=== PATIENT | male | born 1990 | race Caucasian/White ===

== ENCOUNTER 2017-02-09 07:42 | Emergency (ER) | payer OTHER ==
[~2017-02-09] VITALS: Ht 170.2 cm; Wt 92.0 kg
[~2017-02-09 07:42] MED LIST: ACET500C5 PO; AMO500 PO; AMOX1TAB10 PO; CYCL-319 PO; ERYTOPOI RIGHT EYE; FAMO-18 PO; HYDR-3498 PO; HYDR-762 PO; IBUP-1542 PO; IBUP800T25 PO; ONDA4TAB35 PO; ONDA4TAB8 PO; PANT40SU2 PO
[2017-02-09 07:48] VITALS: Ht 170.2 cm; Wt 92.0 kg
--- NOTE | 2017-02-09 08:37 | RADRPT ---
PROCEDURE: XR Chest. CLINICAL INDICATION: Cough TECHNIQUE: Chest AP portable. COMPARISON: 05/08/2014 FINDINGS: The mediastinal structures are unremarkable. The heart is normal in size and configuration. The pu lmonary vascularity is normal. The lung vargas are unremarkable. No consolidation is identified. The pleural spaces are unremarkable. The axial skeleton is unremarkable. IMPRESSION: No active intrathoracic disease. RPTAT: HGDB .Dominic Aguilar MD, MD Date Time Electronically viewed and signed by .Dominic Aguilar MD, on 02/09/2017 08:37 .B/
[2017-02-09] MEDS ORDERED: AZIT250T94 PO (08:40)
[2017-02-09] MEDS ORDERED: ALBU8.5H3 INH (08:40)
[2017-02-09] MEDS ORDERED: CETI10CA PO (08:40)
--- NOTE | 2017-02-09 08:43 | ERD ---
ER Documentation Chief Complaint Date/Time DATE: 02/09/17 TIME: 0800 Chief Complaint Complains of a cough x 2 months HPI 27-year-old male presents the emergency department complaining of a cough. Patient states that over the last 2 months she has had a nonproductive cough. He reports no difficulty breathing. He reports no fevers, chills, weight loss, night sweats, hemoptysis. He reports upper respiratory congestion. ROS All systems reviewed and are negative except as per history of present illness. Medications Home Meds Active Scripts Albuterol Sulfate* (Proair HFA*) 8.5 Gm Hfa.aer.ad, 2 PUFF INH Q4H Y for WHEEZING AND SOB, #1 INHALER Prov:JEF RICARDO 02/09/17 Cetirizine Hcl* (Zyrtec*) 10 Mg Capsule, 10 MG PO DAILY, #10 TAB.CHEW Prov:JEF RICARDO 02/09/17 Azithromycin* (Zithromax*) 250 Mg Tablet, 250 MG PO .SHOLA DIRECTED, #6 TAB TAKE 500 MG (2 TABS) THE FIRST DAY THEN 250 MG (1 TAB) DAYS 2-5 Prov:JEF RICARDO 02/09/17 Amoxicillin/Potassium Clav (Amox-Clav 875-125 mg Tablet) 875-125 mg Tab, 1 TAB PO BID for 7 Days, #14 TAB Prov:CHANO RUSSO PA-C 08/24/16 Ibuprofen* (Motrin*) 600 Mg Tab, 600 MG PO Q6, #30 TAB Prov:CHRIST BARNES PA-C 08/15/16 Acetaminophen* (Tylophen*) 500 Mg Capsule, 2 CAP PO Q8H Y for PAIN AND OR ELEVATED TEMP, #30 CAP Prov:CHRIST BARNES PA-C 08/15/16 Erythromycin* (Erythromycin* Ophthalmic) 1 Applic Oint, 1 APPLIC RIGHT EYE QID, #1 TUB Prov:RICARDO VARELA PA-C 05/05/16 Hydrocodone Bit-Acetaminophen* ([place]*) 10-325 Mg Tablet, 1 TAB PO Q6 Y for PAIN , #7 TAB Prov:CHRIST BARNES PA-C 04/14/16 Acetaminophen* (Tylophen*) 500 Mg Capsule, 1 CAP PO Q6H Y for PAIN AND OR ELEVATED TEMP, #30 CAP Prov:CHRIST BARNES PA-C 04/14/16 Famotidine* (Pepcid*) 20 Mg Tablet, 40 MG PO BID for 14 Days, TAB Prov:CHRIST BARNES PA-C 04/14/16 Ondansetron Hcl* (Zofran*) 4 Mg Tablet, 4 MG PO Q6H for NAUSEA AND/OR VOMITING, #20 TAB Prov:CHRIST BARNES PA-C 04/14/16 Amoxicillin* (Amoxicillin*) 500 Mg Cap, 500 MG PO TID for 10 Days, CAP Prov:SHWETHA BERMUDEZ PA-C 04/11/16 Ibuprofen* (Motrin*) 800 Mg Tab, 800 MG PO Q6, #30 TAB Prov:SHWETHA BERMUDEZ PA-C 04/11/16 Cyclobenzaprine Hcl* (Cyclobenzaprine Hcl*) 10 Mg Tablet, 10 MG PO TID, #15 TAB Prov:SHWETHA BERMUDEZ PA-C 04/11/16 Pantoprazole (Protonix) 40 Mg/Blist Pack Suspdr.pkt, 40 MG PO DAILY, #14 PACKET Prov:NHI PERALTA MD 12/08/15 Ondansetron Hcl* (Zofran* ODT) 4 mg -ODT Tab.disper, 4 MG PO Q6H Y for NAUSEA, # 10 TAB Prov:NHI PERALTA MD 12/08/15 Hydrocodone Bit-Acetaminophen* ([place]*) 5-325 Mg Tab, 1 TAB PO Q6 Y for PAIN, # 10 TAB Prov:NHI PERALTA MD 12/08/15 Allergies Allergies: Coded Allergies: No Known Drug Allergies (Verified Allergy, Unknown, 04/11/16) PMhx/Soc History of Surgery: No Anesthesia Reaction: No Hx Neurological Disorder: No Hx Respiratory Disorders: No Hx Cardiac Disorders: No Hx Psychiatric Problems: No Hx Miscellaneous Medical Probl: Yes (GALLSTONE,GASTRITIS) Hx Alcohol Use: Yes (socially) Hx Substance Use: Yes (marijuana) Hx Tobacco Use: Yes Smoking Status: Current some day smoker FmHx Noncontributory for chief complaint Physical Exam Vitals Vital Signs Date Time Temp Pulse Resp B/P Pulse Ox O2 Delivery O2 Flow Rate FiO2 02/09/17 07:48 98.0 61 20 118/75 97 Physical Exam GENERAL: The patient is well developed and appropriate for usual state of health in no apparent distress HEENT: Pupils equal, round, and reactive to light. EOMI. There is no scleral icterus. NECK: C-spine is soft and supple, there is no meningismus. There is no cervical lymphadenopathy. LUNGS: Clear to auscultation bilaterally. There are no rales, wheezes or rhonchi. HEART: Regular rate and rhythm, no murmurs, clicks, rubs or gallops. Procedures/MDM Patient was taken to a room, seen and examined. Imaging: Chest x-ray reviewed with radiology Medical decision making: Otherwise healthy 27-year-old presents with a chronic cough. Chest x-ray is ruled out significant pneumonia. Patient has no evidence of bronchospasm. Patient likely has a upper respiratory cause of his chronic cough and I will be treating him supportively. He is otherwise clinically well with no signs of respiratory distress and appropriate for outpatient care. Departure Diagnosis: Primary Impression: Cough Condition: Stable Patient Instructions: Cough, Chronic, Uncertain Cause, (Adult) Additional Instructions: See your doctor for follow-up as discussed. Take a copy of your test results, if appropriate, to this follow-up visit. See your doctor or return here if your symptoms do not improve as expected. At any time, please return to the emergency department for any change or worsening in her symptoms. JEF RICARDO February 09, 2017 08:42
== END 2017-02-09 08:47 | disposition home or self-care (01) ==
LOC: FTE 07:42
DX: R05 Cough (principal); F17.210 Nicotine dependence, cigarettes, uncomplicated
CPT/HCPCS: 71010; Z7502

== ENCOUNTER 2017-02-23 08:43 | Emergency (ER) | payer OTHER ==
[~2017-02-23] VITALS: Ht 172.7 cm; Wt 100.0 kg
[~2017-02-23 08:43] MED LIST changes: +ALBU8.5H3 INH; +AZIT250T94 PO; +CETI10CA PO
[2017-02-23 08:45] VITALS: Ht 172.7 cm; Wt 100.0 kg
[2017-02-23] MEDS ORDERED: KETOROLAC 30 MG INJ IM STA (08:58)
[2017-02-23] MEDS ORDERED: CYCL5TAB PO (09:01)
[2017-02-23] MEDS ORDERED: IBUP-1542 PO (09:01)
--- NOTE | 2017-02-23 09:16 | ERD ---
ER Documentation Chief Complaint Date/Time DATE: 02/23/17 TIME: 09:11 Chief Complaint pt bib self with c/o back pain starting last thursday HPI 27-year-old male self-referred to the emergency room complains of mid back pain that started 7-8 days ago. Patient states that he was at work, although he normally lifts heavy at work, he was lifting a light object and turned and twisted and now he has diffuse pain in the thoracic region that goes across his back. Pain is worse with movement, achy, worse with flexion, better in sitting position. He took ibuprofen 800 mg he states that that seemed to help. He denies saddle anesthesia, loss of bowel bladder function. ROS All systems reviewed and are negative except as per history of present illness. Medications Home Meds Active Scripts Ibuprofen* (Motrin*) 600 Mg Tab, 600 MG PO Q6, #30 TAB Prov:CHANO RUSSO PA-C 02/23/17 Cyclobenzaprine Hcl* (Cyclobenzaprine Hcl*) 5 Mg Tablet, 5 MG PO Q8H Y for PAIN , #15 TAB Prov:CHANO RUSSO PA-C 02/23/17 Albuterol Sulfate* (Proair HFA*) 8.5 Gm Hfa.aer.ad, 2 PUFF INH Q4H Y for WHEEZING AND SOB, #1 INHALER Prov:JEF RICARDO 02/09/17 Cetirizine Hcl* (Zyrtec*) 10 Mg Capsule, 10 MG PO DAILY, #10 TAB.CHEW Prov:JEF RICARDO 02/09/17 Azithromycin* (Zithromax*) 250 Mg Tablet, 250 MG PO .QuintenPACK DIRECTED, #6 TAB TAKE 500 MG (2 TABS) THE FIRST DAY THEN 250 MG (1 TAB) DAYS 2-5 Prov:JEF RICARDO 02/09/17 Amoxicillin/Potassium Clav (Amox-Clav 875-125 mg Tablet) 875-125 mg Tab, 1 TAB PO BID for 7 Days, #14 TAB Prov:CHANO RUSSO PA-C 08/24/16 Ibuprofen* (Motrin*) 600 Mg Tab, 600 MG PO Q6, #30 TAB Prov:CHRIST BARNES PA-C 08/15/16 Acetaminophen* (Tylophen*) 500 Mg Capsule, 2 CAP PO Q8H Y for PAIN AND OR ELEVATED TEMP, #30 CAP Prov:CHRIST BARNESC 08/15/16 Erythromycin* (Erythromycin* Ophthalmic) 1 Applic Oint, 1 APPLIC RIGHT EYE QID, #1 TUB Prov:RICARDO VARELA PA-C 05/05/16 Hydrocodone Bit-Acetaminophen* ([place]*) 10-325 Mg Tablet, 1 TAB PO Q6 Y for PAIN , #7 TAB Prov:CHRIST BARNESC 04/14/16 Acetaminophen* (Tylophen*) 500 Mg Capsule, 1 CAP PO Q6H Y for PAIN AND OR ELEVATED TEMP, #30 CAP Prov:CHRIST BARNES PA-C 04/14/16 Famotidine* (Pepcid*) 20 Mg Tablet, 40 MG PO BID for 14 Days, TAB Prov:CHIRST BARNES PA-C 04/14/16 Ondansetron Hcl* (Zofran*) 4 Mg Tablet, 4 MG PO Q6H for NAUSEA AND/OR VOMITING, #20 TAB Prov:CHRIST BARNES PA-C 04/14/16 Amoxicillin* (Amoxicillin*) 500 Mg Cap, 500 MG PO TID for 10 Days, CAP Prov:SHWETHA BERMUDEZ PA-C 04/11/16 Ibuprofen* (Motrin*) 800 Mg Tab, 800 MG PO Q6, #30 TAB Prov:SHWETHA BERMUDEZ PA-C 04/11/16 Cyclobenzaprine Hcl* (Cyclobenzaprine Hcl*) 10 Mg Tablet, 10 MG PO TID, #15 TAB Prov:SHWETHA BERMUDEZ PA-C 04/11/16 Pantoprazole (Protonix) 40 Mg/Blist Pack Suspdr.pkt, 40 MG PO DAILY, #14 PACKET Prov:NHI PERALTA MD 12/08/15 Ondansetron Hcl* (Zofran* ODT) 4 mg -ODT Tab.disper, 4 MG PO Q6H Y for NAUSEA, # 10 TAB Prov:NHI PERALTA MD 12/08/15 Hydrocodone Bit-Acetaminophen* ([place]*) 5-325 Mg Tab, 1 TAB PO Q6 Y for PAIN, # 10 TAB Prov:NHI PERALTA MD 3/26/16 Allergies Allergies: Coded Allergies: No Known Drug Allergies (Verified Allergy, Unknown, 04/11/16) PMhx/Soc Medical and Surgical Hx: pt denies Medical Hx, pt denies Surgical Hx History of Surgery: No Anesthesia Reaction: No Hx Neurological Disorder: No Hx Respiratory Disorders: No Hx Cardiac Disorders: No Hx Psychiatric Problems: No Hx Miscellaneous Medical Probl: Yes (GALLSTONE,GASTRITIS) Hx Alcohol Use: Yes (socially) Hx Substance Use: Yes (marijuana) Hx Tobacco Use: Yes Smoking Status: Current every day smoker Physical Exam Vitals Vital Signs Date Time Temp Pulse Resp B/P Pulse Ox O2 Delivery O2 Flow Rate FiO2 02/23/17 08:45 64 16 112/53 97 Physical Exam General: Well-developed, well-nourished. The patient appears in no acute distress. HEENT: Head is normocephalic, atraumatic. No scleral icterus. Neck: Supple. Nontender. Lungs: Clear to auscultation. Normal air movement. Heart: Regular rate and rhythm. S1 and S2 are normal. No murmurs, gallops, or rubs. Abdomen: Soft, nontender, nondistended. Bowel sounds are normoactive. Back: No midline tenderness, diffuse pain in the midthoracic with palpation laterally. No rash. Strength to lower extremities 5 out of 5 bilaterally. Extremities: No clubbing or cyanosis. Normal pulses. Moving extremities x 4. No weakness. Neurologic: Alert and oriented 3. No focal deficits. Skin: Normal turgor. No rash or lesions. Results 24 hrs Current Medications Medications (Trade) Dose Ordered Sig/Megan Route PRN Reason Start Time Stop Time Status Last Admin Dose Admin Ketorolac Tromethamine (Toradol) 30 mg ONCE STAT IM 02/23/17 08:58 02/23/17 08:59 DC Procedures/MDM 27-year-old male comes in with a mid thoracic strain. Patient's back pain is from twisting, there is no history of trauma. Strength and gait is intact. Patient's pain is reproducible palpation, this appears to be musculoskeletal origin of back pain. There are no signs of acute coronary syndrome, dissection , pulmonary embolus, pneumonia, cauda equina, compression syndrome. Departure Diagnosis: Primary Impression: Back pain Condition: Good Patient Instructions: Thoracic Strain Additional Instructions: Call your primary care doctor TOMORROW for an appointment during the next 1-2 days.See the doctor sooner or return here if your condition worsens before your appointment time. CHANO RUSSO PA-C Feb 23, 2017 09:16
== END 2017-02-23 09:20 | disposition home or self-care (01) ==
LOC: FTE 08:43
DX: M54.6 Pain in thoracic spine (principal); F17.210 Nicotine dependence, cigarettes, uncomplicated
CPT/HCPCS: 96372; J1885

== ENCOUNTER 2017-04-13 01:55 | Emergency (ER) | payer OTHER ==
[~2017-04-13] VITALS: Ht 172.7 cm; Wt 96.0 kg
[~2017-04-13 01:55] MED LIST changes: +CYCL5TAB PO; -FAMO-18 PO; +FAMO-96 PO
[2017-04-13 02:07] VITALS: Ht 172.7 cm; Wt 96.0 kg
--- NOTE | 2017-04-13 03:34 | RADRPT ---
PROCEDURE: XR Chest. CLINICAL INDICATION: Cough. TECHNIQUE: AP Portable chest. COMPARISON: 02/09/2017 FINDINGS: The cardiomediastinal silhouette is normal. The lungs are clear. The osseous structures are unrema rkable. IMPRESSION: No acute findings. RPTAT: HIKT .Jae Wood MD, MD Date Time Electronically viewed and signed by .aJe Wood MD, on 04/13/2017 03:33 .T/
--- NOTE | 2017-04-13 03:47 | ERD ---
ER Documentation Chief Complaint Date/Time DATE: 04/13/17 TIME: 03:45 Chief Complaint cough, SOB, sore throat HPI 27-year-old male presents to emergency department for complaint of cough shortness breath wheezing sore throat started 2 days ago. Patient has been dry cough with wheezing. Patient is complaining of sore throat from coughing burning pain for 6/10 scale, is worse with swallowing. Patient did not take any medications to help with symptoms. Patient denies any fever or chills. Patient denies any chest or palpitations. Patient denies any dyspnea on exertion or dyspnea on lying down. ROS All systems reviewed and are negative except as per history of present illness. Medications Home Meds Active Scripts Ibuprofen* (Motrin*) 600 Mg Tab, 600 MG PO Q6, #30 TAB Prov:CHANO RUSSO PA-C 02/23/17 Cyclobenzaprine Hcl* (Cyclobenzaprine Hcl*) 5 Mg Tablet, 5 MG PO Q8H Y for PAIN , #15 TAB Prov:CHANO RUSSO PA-C 02/23/17 Albuterol Sulfate* (Proair HFA*) 8.5 Gm Hfa.aer.ad, 2 PUFF INH Q4H Y for WHEEZING AND SOB, #1 INHALER Prov:JEF RICARDO 02/09/17 Cetirizine Hcl* (Zyrtec*) 10 Mg Capsule, 10 MG PO DAILY, #10 TAB.CHEW Prov:JEF RICARDO 02/09/17 Azithromycin* (Zithromax*) 250 Mg Tablet, 250 MG PO .ZPACK DIRECTED, #6 TAB TAKE 500 MG (2 TABS) THE FIRST DAY THEN 250 MG (1 TAB) DAYS 2-5 Prov:JEF RICARDO 02/09/17 Amoxicillin/Potassium Clav (Amox-Clav 875-125 mg Tablet) 875-125 mg Tab, 1 TAB PO BID for 7 Days, #14 TAB Prov:CHANO RUSSO PA-C 08/24/16 Ibuprofen* (Motrin*) 600 Mg Tab, 600 MG PO Q6, #30 TAB Prov:CHRIST BARNES PA-C 08/15/16 Acetaminophen* (Tylophen*) 500 Mg Capsule, 2 CAP PO Q8H Y for PAIN AND OR ELEVATED TEMP, #30 CAP Prov:CHRIST BARNES PA-C 08/15/16 Erythromycin* (Erythromycin* Ophthalmic) 1 Applic Oint, 1 APPLIC RIGHT EYE QID, #1 TUB Prov:RICARDO VARELA PA-C 05/05/16 Hydrocodone Bit-Acetaminophen* ([place]*) 10-325 Mg Tablet, 1 TAB PO Q6 Y for PAIN , #7 TAB Prov:CHRIST BARNES PA-C 04/14/16 Acetaminophen* (Tylophen*) 500 Mg Capsule, 1 CAP PO Q6H Y for PAIN AND OR ELEVATED TEMP, #30 CAP Prov:CHRIST BARNES PA-C 04/14/16 Famotidine* (Pepcid*) 20 Mg Tablet, 40 MG PO BID for 14 Days, TAB Prov:CHRIST BARNES PA-C 04/14/16 Ondansetron Hcl* (Zofran*) 4 Mg Tablet, 4 MG PO Q6H for NAUSEA AND/OR VOMITING, #20 TAB Prov:CHRIST BARNES PA-C 04/14/16 Amoxicillin* (Amoxicillin*) 500 Mg Cap, 500 MG PO TID for 10 Days, CAP Prov:SHWETHA BERMUDEZ PA-C 04/11/16 Ibuprofen* (Motrin*) 800 Mg Tab, 800 MG PO Q6, #30 TAB Prov:SHWETHA BERMUDEZ PA-C 04/11/16 Cyclobenzaprine Hcl* (Cyclobenzaprine Hcl*) 10 Mg Tablet, 10 MG PO TID, #15 TAB Prov:SHWETHA BERMUDEZ PA-C 04/11/16 Pantoprazole (Protonix) 40 Mg/Blist Pack Suspdr.pkt, 40 MG PO DAILY, #14 PACKET Prov:NHI PERALTA MD 12/08/15 Ondansetron Hcl* (Zofran* ODT) 4 mg -ODT Tab.disper, 4 MG PO Q6H Y for NAUSEA, # 10 TAB Prov:NHI PERALTA MD 12/08/15 Hydrocodone Bit-Acetaminophen* ([place]*) 5-325 Mg Tab, 1 TAB PO Q6 Y for PAIN, # 10 TAB Prov:NHI PERALTA MD 12/08/15 Allergies Allergies: Coded Allergies: No Known Drug Allergies (Verified Allergy, Unknown, 04/11/16) PMhx/Soc History of Surgery: No Anesthesia Reaction: No Hx Neurological Disorder: No Hx Respiratory Disorders: No Hx Cardiac Disorders: No Hx Psychiatric Problems: No Hx Miscellaneous Medical Probl: Yes (GALLSTONE,GASTRITIS) Hx Alcohol Use: Yes (socially) Hx Substance Use: Yes (marijuana) Hx Tobacco Use: Yes Smoking Status: Current every day smoker FmHx Family History: No coronary disease, No diabetes, No other Physical Exam Vitals Vital Signs Date Time Temp Pulse Resp B/P Pulse Ox O2 Delivery O2 Flow Rate FiO2 04/13/17 02:07 98.6 70 18 117/61 96 Physical Exam GENERAL: The patient is well developed and appropriate for usual state of health, in no apparent distress. CHEST: Clear to auscultation bilaterally. There are no rales, wheezes or rhonchi. HEART: Regular rate and rhythm. No murmurs, clicks, rubs or gallops. No S3 or S4. ABDOMEN: Soft, nontender and nondistended. Good bowel sounds. No rebound or guarding. No gross peritonitis. No gross organomegaly or masses. No Mckay sign or McBurney point tenderness. BACK: No midline or flank tenderness. EXTREMITIES: Equal pulses bilaterally. There is no peripheral clubbing, cyanosis or edema. No focal swelling or erythema. Full range of motion. Grossly neurovascularly intact. NEURO: Alert and oriented. Cranial nerves 2-12 intact. Motor strength in all 4 extremities with 5/5 strength. Sensation grossly intact. Normal speech and gait. SKIN: There is no apparent rash or petechia. The skin is warm and dry. HEMATOLOGIC AND LYMPHATIC: There is no evidence of excessive bruising or lymphedema. No gross cervical, axillary, or inguinal lymphadenopathy. Results 24 hrs PROCEDURE: XR Chest. CLINICAL INDICATION: Cough. TECHNIQUE: AP Portable chest. COMPARISON: 02/09/2017 FINDINGS: The cardiomediastinal silhouette is normal. The lungs are clear. The osseous structures are unremarkable. IMPRESSION: No acute findings. RPTAT: HIKT .Jae Wood MD, MD Date Time Electronically viewed and signed by .Jae Wood MD, on 04/13/2017 03:33 .T/ CC: YENIFER ONEILL NP Procedures/MDM Medical Decision Making: Patient symptoms are most likely consistent with acute bronchitis, which viral in origin. There is low suspicion for Pneumonia at this time since patients lungs sounds are clear, patient O2 saturation is normal and patient doesnt show any respiratory distress. Patients chest xray doesnt show infiltrates or any other cardiopulmonary emergencies at this time. There is low suspicion for other cardiopulmonary emergencies at this time such as CHF, Pulmonary Embolism, Pneumothorax, Aortic Aneurysm or any other cardiopulmonary emergencies at this time. There is low suspicion for sepsis. Patient appears well and is hemodynamically stable. She does not have any fever. Disposition: Home. Condition: Stable Prescriptions: Albuterol, guaifenesin DM Zyrtec ibuprofen Instructions: Patient is advised to take medications as prescribed. Patient is advised to rest. Patient advised to increase fluid intake, do humidifier at home and if possible, do salt water gargles. Patient is advised that if symptoms are worse, shortness of breath, uncontrolled fever, stridor, vomiting, worst signs and symptoms to return to emergency department immediately. Otherwise, patient is advised to follow up with primary doctor in 5-7 days. Departure Diagnosis: Primary Impression: Acute bronchitis Bronchitis organism: unspecified organism Qualified Code: J20.9 - Acute bronchitis, unspecified organism Condition: Stable Patient Instructions: Bronchitis With Wheezing (Adult) Additional Instructions: Patient is advised to take medications as prescribed. Patient is advised to rest. Patient advised to increase fluid intake, do humidifier at home and if possible, do salt water gargles. Patient is advised that if symptoms are worse, shortness of breath, uncontrolled fever, stridor, vomiting, worst signs and symptoms to return to emergency department immediately. Otherwise, patient is advised to follow up with primary doctor in 5-7 days. YENIFER ONEILL NP Apr 13, 2017 03:47
[2017-04-13] MEDS ORDERED: GUAI120S26 PO (03:48)
[2017-04-13] MEDS ORDERED: CETI10CA PO (03:48)
[2017-04-13] MEDS ORDERED: ALBU8.5H3 INH (03:48)
[2017-04-13] MEDS ORDERED: IBUP-1542 PO (03:48)
== END 2017-04-13 04:23 | disposition home or self-care (01) ==
LOC: FTE 01:55
DX: J20.9 Acute bronchitis, unspecified (principal); F17.210 Nicotine dependence, cigarettes, uncomplicated
CPT/HCPCS: 71010; Z7502

== ENCOUNTER 2017-06-07 07:59 | Emergency (ER) | payer OTHER ==
[~2017-06-07] VITALS: Ht 172.7 cm; Wt 94.0 kg
[~2017-06-07 07:59] MED LIST changes: -AMO500 PO; +AMOX500C2 PO; +GUAI120S26 PO
[2017-06-07 08:00] VITALS: Ht 172.7 cm; Wt 94.0 kg
--- NOTE | 2017-06-07 09:42 | ERD ---
ER Documentation Chief Complaint Date/Time DATE: 06/07/17 TIME: 09:34 Chief Complaint left eye pain HPI 27-year-old male present ED complaining left eye irritation. Patient stated that he was doing cleaning this morning 1 drop of bleach splashed into his left eye. This happened about 1 hour ago. He immediately flushed his left eye was water for 10 minutes, and putting a Clear Eyes drop. He still feels irritated in the left eye, has a dry eye feeling. Denies vision changes. Denies pain in the eye. ROS All systems reviewed and are negative except as per history of present illness. Medications Home Meds Active Scripts Buazqksgvmo-T-Pujjlagyph Hb* (Guaifenesin* DM Syrup) 120 Ml Syrup, 10 ML PO Q4H Y for COUGH, #120 ML Prov:YENIFER ONEILL NP 04/13/17 Cetirizine Hcl* (Zyrtec*) 10 Mg Capsule, 10 MG PO DAILY, #30 TAB.CHEW Prov:YENIFER ONEILL NP 04/13/17 Albuterol Sulfate* (Proair HFA*) 8.5 Gm Hfa.aer.ad, 2 PUFF INH Q4H Y for WHEEZING AND SOB, #1 INHALER Prov:YENIFER ONEILL NP 04/13/17 Ibuprofen* (Motrin*) 600 Mg Tab, 600 MG PO Q6H Y for PAIN AND OR ELEVATED TEMP, #30 TAB Prov:YENIFER ONEILL NP 04/13/17 Ibuprofen* (Motrin*) 600 Mg Tab, 600 MG PO Q6, #30 TAB Prov:CHANO RUSSO PA-C 02/23/17 Cyclobenzaprine Hcl* (Cyclobenzaprine Hcl*) 5 Mg Tablet, 5 MG PO Q8H Y for PAIN , #15 TAB Prov:CHANO RUSSO PA-C 02/23/17 Albuterol Sulfate* (Proair HFA*) 8.5 Gm Hfa.aer.ad, 2 PUFF INH Q4H Y for WHEEZING AND SOB, #1 INHALER Prov:JEF RICARDO 02/09/17 Cetirizine Hcl* (Zyrtec*) 10 Mg Capsule, 10 MG PO DAILY, #10 TAB.CHEW Prov:JEF RICARDO 02/09/17 Azithromycin* (Zithromax*) 250 Mg Tablet, 250 MG PO .HSOLA DIRECTED, #6 TAB TAKE 500 MG (2 TABS) THE FIRST DAY THEN 250 MG (1 TAB) DAYS 2-5 Prov:JEF RICARDO 02/09/17 Amoxicillin/Potassium Clav (Amox-Clav 875-125 mg Tablet) 875-125 mg Tab, 1 TAB PO BID for 7 Days, #14 TAB Prov:CHANO RUSSO PA-C 08/24/16 Ibuprofen* (Motrin*) 600 Mg Tab, 600 MG PO Q6, #30 TAB Prov:CHRIST BARNESC 08/15/16 Acetaminophen* (Tylophen*) 500 Mg Capsule, 2 CAP PO Q8H Y for PAIN AND OR ELEVATED TEMP, #30 CAP Prov:CHRIST BARNESC 08/15/16 Erythromycin* (Erythromycin* Ophthalmic) 1 Applic Oint, 1 APPLIC RIGHT EYE QID, #1 TUB Prov:RICARDO VARELAC 05/05/16 Hydrocodone Bit-Acetaminophen* ([place]*) 10-325 Mg Tablet, 1 TAB PO Q6 Y for PAIN , #7 TAB Prov:CHRIST BARNESC 04/14/16 Acetaminophen* (Tylophen*) 500 Mg Capsule, 1 CAP PO Q6H Y for PAIN AND OR ELEVATED TEMP, #30 CAP Prov:CHRIST BARNESC 04/14/16 Famotidine* (Pepcid*) 20 Mg Tablet, 40 MG PO BID for 14 Days, TAB Prov:CHRIST BARNESC 04/14/16 Ondansetron Hcl* (Zofran*) 4 Mg Tablet, 4 MG PO Q6H for NAUSEA AND/OR VOMITING, #20 TAB Prov:CHRIST BARNESC 04/14/16 Amoxicillin* (Amoxicillin*) 500 Mg Cap, 500 MG PO TID for 10 Days, CAP Prov:SHWETHA BERMUDEZ PA-C 04/11/16 Ibuprofen* (Motrin*) 800 Mg Tab, 800 MG PO Q6, #30 TAB Prov:SHWETHA BERMUDEZC 04/11/16 Cyclobenzaprine Hcl* (Cyclobenzaprine Hcl*) 10 Mg Tablet, 10 MG PO TID, #15 TAB Prov:SHWETHA BERMUDEZ PA-C 04/11/16 Pantoprazole (Protonix) 40 Mg/Blist Pack Suspdr.pkt, 40 MG PO DAILY, #14 PACKET Prov:NHI PERALTA MD 12/08/15 Ondansetron Hcl* (Zofran* ODT) 4 mg -ODT Tab.disper, 4 MG PO Q6H Y for NAUSEA, # 10 TAB Prov:NHI PERALTA MD 12/08/15 Hydrocodone Bit-Acetaminophen* ([place]*) 5-325 Mg Tab, 1 TAB PO Q6 Y for PAIN, # 10 TAB Prov:NHI PERALTA MD 12/08/15 Allergies Allergies: Coded Allergies: No Known Drug Allergies (Verified Allergy, Unknown, 04/11/16) PMhx/Soc History of Surgery: Yes (wisdom teeth) Anesthesia Reaction: No Hx Neurological Disorder: No Hx Respiratory Disorders: No Hx Cardiac Disorders: No Hx Psychiatric Problems: No Hx Miscellaneous Medical Probl: Yes (GALLSTONE,GASTRITIS) Hx Alcohol Use: No Hx Substance Use: Yes (marijuana) Hx Tobacco Use: No Physical Exam Vitals Vital Signs Date Time Temp Pulse Resp B/P Pulse Ox O2 Delivery O2 Flow Rate FiO2 06/07/17 08:00 98.0 64 19 133/80 99 Physical Exam General: Well-developed, well-nourished, conscious and coherent, in no distress Skin: Warm and dry without rash, good texture and turgor Head: Normocephalic without evidence of trauma Eyes: Sclera and conjunctivae normal; pupils equal, round, and reactive to light; extraocular movements are intact Chest: Normal AP diameter. Good expansion without retractions. Nontender. Lungs are clear to auscultate bilaterally with good tidal volume Heart: Regular rate and rhythm. No murmur, rub, or gallops heard Extremities: Full range of motion. Good strength bilaterally. No clubbing, cyanosis, or edema. Peripheral pulses are intact. Sensation intact Neuro: Alert and oriented 4, GCS 15. Cranial nerves grossly intact. Motor and sensory exams nonfocal. Moves all extremities. Speech clear. Gait normal Procedures/MDM Well-appearing 27-year-old male present ED after losing his left eye with bleach. His visual acuity is left 20/25, right 20/30, bilateral 20/30. It was further irrigated in the ED using Gideon lens with 250 mL of normal saline. After irrigation, patient reports feeling much better and his affected eye. Tested the pH of his left eye with nitrazine paper, which showed a pH of 7.0. Low suspicion for corneal injury at this time. Advised to follow-up with product expert if he has any new symptoms. Patient appears well, stable for discharge and outpatient management. Medical decision making shared with patient and family. Education provided to patient and family. Patient and family expressed understanding of the plan. Medications on discharge: None. Follow-up: Battery Tester tomorrow as needed Disclaimer: Inadvertent spelling and grammatical errors are likely due to EHR/ dictation software use and do not reflect on the overall quality of patient care. Also, please note that the electronic time recorded on this note does not necessarily reflect the actual time of the patient encounter. Departure Diagnosis: Primary Impression: Chemical insult, eye Encounter type: initial encounter Laterality: left Qualified Code: T26.92XA - Chemical injury of left eye, initial encounter Condition: Stable Patient Instructions: Eye Protection at Work: Types of Protective Eyewear Referrals: [facility] Hours: Mon - Fri 9:00 AM - 5:00 PM Additional Instructions: Follow up with an eye doctor if no improvement VIDHI MARTINEZ NP Jun 07, 2017 09:42
== END 2017-06-07 09:36 | disposition home or self-care (01) ==
LOC: FTE 07:59
DX: T54.91XA Toxic effect of unspecified corrosive substance, accidental (unintentional), initial encounter (principal); X58.XXXA Exposure to other specified factors, initial encounter; Y92.9 Unspecified place or not applicable
CPT/HCPCS: 99284

== ENCOUNTER 2017-07-22 08:12 | Emergency (ER) | payer OTHER ==
[~2017-07-22] VITALS: Wt 92.0 kg
--- NOTE | 2017-07-22 09:01 | ERD ---
ER Documentation Chief Complaint Chief Complaint "lump" to r. upper back HPI 27y/o male patient with a significant medical history,presents to the emergency department with girlfriend c/o right upper pain, that started [] ago. pain is dull, rated 6/10, radiated to lower back. The symptoms are associated with local tenderness to palpation and muscle spasm. Denies fever, chills, N/V/D. Positive history of previous episodes. Treatment attempted: None ROS SYSTEMIC symptoms: no fever, chills, no night sweats, no weight loss EYE symptoms: No blurred vision, no eye discharge OTOLARYNGEAL symptoms: No hearing loss. No ear pain, no sore throat CARDIOVASCULAR symptoms: No chest pain or discomfort, no palpitations. PULMONARY symptoms: No dyspnea, no cough, no wheezing. GASTROINTESTINAL symptoms: No abdominal pain, no nausea, no vomiting, no diarrhea MUSCULOSKELETAL symptoms: Per HPI NEUROLOGY symptoms: No confusion, no syncope, no numbness or tingling. SKIN no rashes Medications Home Meds Active Scripts Baclofen* (Baclofen*) 10 Mg Tablet, 10 MG PO TID for 5 Days, #15 TAB Prov:CARLENE MONREAL MD 07/22/17 Ibuprofen* (Motrin*) 600 Mg Tab, 600 MG PO Q6, #30 TAB Prov:CARLENE MONREAL MD 07/22/17 Hydrocodone/Acetaminophen ([place] 5-325 Tablet) 1 Each Tablet, 1 TAB PO Q6H for SEVERE PAIN LEVEL 7-10, #12 TAB Prov:CARLENE MONREAL MD 07/22/17 Cxcdyofzihb-S-Uzbflseohq Hb* (Guaifenesin* DM Syrup) 120 Ml Syrup, 10 ML PO Q4H Y for COUGH, #120 ML Prov:YENIFER ONEILL NP 04/13/17 Cetirizine Hcl* (Zyrtec*) 10 Mg Capsule, 10 MG PO DAILY, #30 TAB.CHEW Prov:YENIFER ONEILL NP 04/13/17 Albuterol Sulfate* (Proair HFA*) 8.5 Gm Hfa.aer.ad, 2 PUFF INH Q4H Y for WHEEZING AND SOB, #1 INHALER Prov:YENIFER ONEILL NP 04/13/17 Ibuprofen* (Motrin*) 600 Mg Tab, 600 MG PO Q6H Y for PAIN AND OR ELEVATED TEMP, #30 TAB Prov:YENIFER ONEILL SAMPLE PASTER 04/13/17 Ibuprofen* (Motrin*) 600 Mg Tab, 600 MG PO Q6, #30 TAB Prov:CHANO RUSSO PA-C 02/23/17 Cyclobenzaprine Hcl* (Cyclobenzaprine Hcl*) 5 Mg Tablet, 5 MG PO Q8H Y for PAIN , #15 TAB Prov:CHANO RUSSO PA-C 02/23/17 Albuterol Sulfate* (Proair HFA*) 8.5 Gm Hfa.aer.ad, 2 PUFF INH Q4H Y for WHEEZING AND SOB, #1 INHALER Prov:JEF RICARDO 02/09/17 Cetirizine Hcl* (Zyrtec*) 10 Mg Capsule, 10 MG PO DAILY, #10 TAB.CHEW Prov:JEF RICARDO 02/09/17 Azithromycin* (Zithromax*) 250 Mg Tablet, 250 MG PO .ZPACK DIRECTED, #6 TAB TAKE 500 MG (2 TABS) THE FIRST DAY THEN 250 MG (1 TAB) DAYS 2-5 Prov:JEF RICARDO 02/09/17 Amoxicillin/Potassium Clav (Amox-Clav 875-125 mg Tablet) 875-125 mg Tab, 1 TAB PO BID for 7 Days, #14 TAB Prov:CHANO RUSSO PA-C 08/24/16 Ibuprofen* (Motrin*) 600 Mg Tab, 600 MG PO Q6, #30 TAB Prov:CHRIST BARNES PA-C 08/15/16 Acetaminophen* (Tylophen*) 500 Mg Capsule, 2 CAP PO Q8H Y for PAIN AND OR ELEVATED TEMP, #30 CAP Prov:CHRIST BARNES PA-C 08/15/16 Erythromycin* (Erythromycin* Ophthalmic) 1 Applic Oint, 1 APPLIC RIGHT EYE QID, #1 TUB Prov:RICARDO VARELA PA-C 05/05/16 Hydrocodone Bit-Acetaminophen* ([place]*) 10-325 Mg Tablet, 1 TAB PO Q6 Y for PAIN , #7 TAB Prov:CHRIST BARNES PA-C 04/14/16 Acetaminophen* (Tylophen*) 500 Mg Capsule, 1 CAP PO Q6H Y for PAIN AND OR ELEVATED TEMP, #30 CAP Prov:CHRIST BARNES PA-C 04/14/16 Famotidine* (Pepcid*) 20 Mg Tablet, 40 MG PO BID for 14 Days, TAB Prov:CHRIST BARNES PA-C 04/14/16 Ondansetron Hcl* (Zofran*) 4 Mg Tablet, 4 MG PO Q6H for NAUSEA AND/OR VOMITING, #20 TAB Prov:CHRIST BARNES PA-C 04/14/16 Amoxicillin* (Amoxicillin*) 500 Mg Cap, 500 MG PO TID for 10 Days, CAP Prov:SHWETHA BERMUDEZ PA-C 04/11/16 Ibuprofen* (Motrin*) 800 Mg Tab, 800 MG PO Q6, #30 TAB Prov:SHWETHA BERMUDEZ PA-C 04/11/16 Cyclobenzaprine Hcl* (Cyclobenzaprine Hcl*) 10 Mg Tablet, 10 MG PO TID, #15 TAB Prov:SHWETHA BERMUDEZ PA-C 04/11/16 Pantoprazole (Protonix) 40 Mg/Blist Pack Suspdr.pkt, 40 MG PO DAILY, #14 PACKET Prov:NHI PERALTA MD 12/08/15 Ondansetron Hcl* (Zofran* ODT) 4 mg -ODT Tab.disper, 4 MG PO Q6H Y for NAUSEA, # 10 TAB Prov:NHI PERALTA MD 12/08/15 Hydrocodone Bit-Acetaminophen* ([place]*) 5-325 Mg Tab, 1 TAB PO Q6 Y for PAIN, # 10 TAB Prov:NHI PERALTA MD 12/08/15 Allergies Allergies: Coded Allergies: No Known Drug Allergies (Verified Allergy, Unknown, 07/22/17) PMhx/Soc History of Surgery: Yes (wisdom teeth) Anesthesia Reaction: No Hx Neurological Disorder: No Hx Respiratory Disorders: No Hx Cardiac Disorders: No Hx Psychiatric Problems: No Hx Miscellaneous Medical Probl: Yes (GALLSTONE,GASTRITIS) Hx Alcohol Use: No Hx Substance Use: Yes (marijuana) Hx Tobacco Use: No Smoking Status: Never smoker Physical Exam Vitals Vital Signs Date Time Temp Pulse Resp B/P Pulse Ox O2 Delivery O2 Flow Rate FiO2 07/22/17 08:13 97.6 86 20 134/75 99 Physical Exam Patient is in no acute distress, vital signs stable. Alert and fully oriented. EYES: PERRLA, EOMI, Sclera and conjunctiva appear normal. EARS: Canals clear, tympanic membranes WNL THROAT: Normal oropharynx. NECK: Supple, No lymphadenopathy. Full ROM without pain or tenderness. HEART: RRR, no rubs, murmurs, clicks or gallops. LUNGS: Clear to auscultation. ABDOMEN: Soft, non-tender without masses or hepatosplenomegaly. EXTREMITIES: No edema bilaterally. MUSC: Full ROM, no deformity, normal back exam, no vertebral tenderness, right muscle spasm noticed Procedures/MDM Acute back pain: no red flags. Differential diagnosis: lumbar sprain/strain, sciatica, herniated disk, UTI less likely pyelo, kidney stone. Neurovascular exam grossly intact. no clinical findings suggestive of acute infetious process , no acute deformity, no edema, no rashes. Most likely muscle spasm. During the ED course the patient remained stable no new complaints Medical impression discussed with patient who agrees with management. The patient is stable to be treated outpatient and will be discharged home with a Rx for [place], baclofen and ibuprofen as needed Side effects of prescribed narcotic medications (drowsiness, constipation, habituation) were reviewed. Side effects of prescribed muscle relaxants (drowsiness, habituation) were reviewed. Side effects of prescribed NSAID medication (GI distress, edema, bleeding, HTN) were reviewed. If symptoms persist, worsen or new symptoms develop, then patient is instructed to follow-up with the primary care provider. If the patient is unable to see the primary care provider, then return to the ED immediately. Departure Diagnosis: Primary Impression: Back muscle spasm Additional Impression: Overuse injury Condition: Stable Additional Instructions: Thank you very much for allowing us to participate in your care. Your health and safety is our top priority at [facility]. Have prescriptions filled and follow precisely the directions on the label. Follow-up with primary care provider during the next 4 days and bring all the information and medications prescribed. If illness has not improved in 2 days, then make an appointment with primary care provider. If the provider is unavailable, return to the Emergency Department immediately. CARLENE MONREAL MD Jul 22, 2017 09:01
--- NOTE | 2017-07-22 09:01 | ERD ---
ER Documentation Chief Complaint Chief Complaint "lump" to r. upper back HPI 27y/o male patient with a significant medical history,presents to the emergency department with girlfriend c/o right upper pain, that started [] ago. pain is dull, rated 6/10, radiated to lower back. The symptoms are associated with local tenderness to palpation and muscle spasm. Denies fever, chills, N/V/D. Positive history of previous episodes. Treatment attempted: None ROS SYSTEMIC symptoms: no fever, chills, no night sweats, no weight loss EYE symptoms: No blurred vision, no eye discharge OTOLARYNGEAL symptoms: No hearing loss. No ear pain, no sore throat CARDIOVASCULAR symptoms: No chest pain or discomfort, no palpitations. PULMONARY symptoms: No dyspnea, no cough, no wheezing. GASTROINTESTINAL symptoms: No abdominal pain, no nausea, no vomiting, no diarrhea MUSCULOSKELETAL symptoms: Per HPI NEUROLOGY symptoms: No confusion, no syncope, no numbness or tingling. SKIN no rashes Medications Home Meds Active Scripts Baclofen* (Baclofen*) 10 Mg Tablet, 10 MG PO TID for 5 Days, #15 TAB Prov:CARLENE MONREAL MD 07/22/17 Ibuprofen* (Motrin*) 600 Mg Tab, 600 MG PO Q6, #30 TAB Prov:CARLENE MONREAL MD 07/22/17 Hydrocodone/Acetaminophen ([place] 5-325 Tablet) 1 Each Tablet, 1 TAB PO Q6H for SEVERE PAIN LEVEL 7-10, #12 TAB Prov:CARLENE MONREAL MD 07/22/17 Rieuijfugak-U-Rivldosgxz Hb* (Guaifenesin* DM Syrup) 120 Ml Syrup, 10 ML PO Q4H Y for COUGH, #120 ML Prov:YENIFER ONEILL NP 04/13/17 Cetirizine Hcl* (Zyrtec*) 10 Mg Capsule, 10 MG PO DAILY, #30 TAB.CHEW Prov:YENIFER ONEILL NP 04/13/17 Albuterol Sulfate* (Proair HFA*) 8.5 Gm Hfa.aer.ad, 2 PUFF INH Q4H Y for WHEEZING AND SOB, #1 INHALER Prov:YENIFER ONEILL NP 04/13/17 Ibuprofen* (Motrin*) 600 Mg Tab, 600 MG PO Q6H Y for PAIN AND OR ELEVATED TEMP, #30 TAB Prov:YENIFER ONEILL QUARRY PLUG AND FEATHER DRILLER 04/13/17 Ibuprofen* (Motrin*) 600 Mg Tab, 600 MG PO Q6, #30 TAB Prov:CHANO RUSSO PA-C 02/23/17 Cyclobenzaprine Hcl* (Cyclobenzaprine Hcl*) 5 Mg Tablet, 5 MG PO Q8H Y for PAIN , #15 TAB Prov:CHANO RUSSO PA-C 02/23/17 Albuterol Sulfate* (Proair HFA*) 8.5 Gm Hfa.aer.ad, 2 PUFF INH Q4H Y for WHEEZING AND SOB, #1 INHALER Prov:JEF RICARDO 02/09/17 Cetirizine Hcl* (Zyrtec*) 10 Mg Capsule, 10 MG PO DAILY, #10 TAB.CHEW Prov:JEF RICARDO 02/09/17 Azithromycin* (Zithromax*) 250 Mg Tablet, 250 MG PO .ZPACK DIRECTED, #6 TAB TAKE 500 MG (2 TABS) THE FIRST DAY THEN 250 MG (1 TAB) DAYS 2-5 Prov:JEF RICARDO 02/09/17 Amoxicillin/Potassium Clav (Amox-Clav 875-125 mg Tablet) 875-125 mg Tab, 1 TAB PO BID for 7 Days, #14 TAB Prov:CHANO RUSSO PA-C 08/24/16 Ibuprofen* (Motrin*) 600 Mg Tab, 600 MG PO Q6, #30 TAB Prov:CHRIST BARNES PA-C 08/15/16 Acetaminophen* (Tylophen*) 500 Mg Capsule, 2 CAP PO Q8H Y for PAIN AND OR ELEVATED TEMP, #30 CAP Prov:CHRIST BARNES PA-C 08/15/16 Erythromycin* (Erythromycin* Ophthalmic) 1 Applic Oint, 1 APPLIC RIGHT EYE QID, #1 TUB Prov:RICARDO VARELA PA-C 05/05/16 Hydrocodone Bit-Acetaminophen* ([place]*) 10-325 Mg Tablet, 1 TAB PO Q6 Y for PAIN , #7 TAB Prov:CHRIST BARNES PA-C 04/14/16 Acetaminophen* (Tylophen*) 500 Mg Capsule, 1 CAP PO Q6H Y for PAIN AND OR ELEVATED TEMP, #30 CAP Prov:CHRIST BARNES PA-C 04/14/16 Famotidine* (Pepcid*) 20 Mg Tablet, 40 MG PO BID for 14 Days, TAB Prov:CHRIST BARNES PA-C 04/14/16 Ondansetron Hcl* (Zofran*) 4 Mg Tablet, 4 MG PO Q6H for NAUSEA AND/OR VOMITING, #20 TAB Prov:CHRIST BARNES PA-C 04/14/16 Amoxicillin* (Amoxicillin*) 500 Mg Cap, 500 MG PO TID for 10 Days, CAP Prov:SHWETHA BERMUDEZ PA-C 04/11/16 Ibuprofen* (Motrin*) 800 Mg Tab, 800 MG PO Q6, #30 TAB Prov:SHWETHA BERMUDEZ PA-C 04/11/16 Cyclobenzaprine Hcl* (Cyclobenzaprine Hcl*) 10 Mg Tablet, 10 MG PO TID, #15 TAB Prov:SHWETHA BERMUDEZ PA-C 04/11/16 Pantoprazole (Protonix) 40 Mg/Blist Pack Suspdr.pkt, 40 MG PO DAILY, #14 PACKET Prov:NHI PERALTA MD 12/08/15 Ondansetron Hcl* (Zofran* ODT) 4 mg -ODT Tab.disper, 4 MG PO Q6H Y for NAUSEA, # 10 TAB Prov:NHI PERALTA MD 12/08/15 Hydrocodone Bit-Acetaminophen* ([place]*) 5-325 Mg Tab, 1 TAB PO Q6 Y for PAIN, # 10 TAB Prov:NHI PERALTA MD 12/08/15 Allergies Allergies: Coded Allergies: No Known Drug Allergies (Verified Allergy, Unknown, 07/22/17) PMhx/Soc History of Surgery: Yes (wisdom teeth) Anesthesia Reaction: No Hx Neurological Disorder: No Hx Respiratory Disorders: No Hx Cardiac Disorders: No Hx Psychiatric Problems: No Hx Miscellaneous Medical Probl: Yes (GALLSTONE,GASTRITIS) Hx Alcohol Use: No Hx Substance Use: Yes (marijuana) Hx Tobacco Use: No Smoking Status: Never smoker Physical Exam Vitals Vital Signs Date Time Temp Pulse Resp B/P Pulse Ox O2 Delivery O2 Flow Rate FiO2 07/22/17 08:13 97.6 86 20 134/75 99 Physical Exam Patient is in no acute distress, vital signs stable. Alert and fully oriented. EYES: PERRLA, EOMI, Sclera and conjunctiva appear normal. EARS: Canals clear, tympanic membranes WNL THROAT: Normal oropharynx. NECK: Supple, No lymphadenopathy. Full ROM without pain or tenderness. HEART: RRR, no rubs, murmurs, clicks or gallops. LUNGS: Clear to auscultation. ABDOMEN: Soft, non-tender without masses or hepatosplenomegaly. EXTREMITIES: No edema bilaterally. MUSC: Full ROM, no deformity, normal back exam, no vertebral tenderness, right muscle spasm noticed Procedures/MDM Acute back pain: no red flags. Differential diagnosis: lumbar sprain/strain, sciatica, herniated disk, UTI less likely pyelo, kidney stone. Neurovascular exam grossly intact. no clinical findings suggestive of acute infetious process , no acute deformity, no edema, no rashes. Most likely muscle spasm. During the ED course the patient remained stable no new complaints Medical impression discussed with patient who agrees with management. The patient is stable to be treated outpatient and will be discharged home with a Rx for [place], baclofen and ibuprofen as needed Side effects of prescribed narcotic medications (drowsiness, constipation, habituation) were reviewed. Side effects of prescribed muscle relaxants (drowsiness, habituation) were reviewed. Side effects of prescribed NSAID medication (GI distress, edema, bleeding, HTN) were reviewed. If symptoms persist, worsen or new symptoms develop, then patient is instructed to follow-up with the primary care provider. If the patient is unable to see the primary care provider, then return to the ED immediately. Departure Diagnosis: Primary Impression: Back muscle spasm Additional Impression: Overuse injury Condition: Stable Additional Instructions: Thank you very much for allowing us to participate in your care. Your health and safety is our top priority at [facility]. Have prescriptions filled and follow precisely the directions on the label. Follow-up with primary care provider during the next 4 days and bring all the information and medications prescribed. If illness has not improved in 2 days, then make an appointment with primary care provider. If the provider is unavailable, return to the Emergency Department immediately. CARLENE MONREAL MD Jul 22, 2017 09:01
[2017-07-22] MEDS ORDERED: IBUP-1542 PO (09:40)
[2017-07-22] MEDS ORDERED: BACL10TA PO (09:40)
[2017-07-22] MEDS ORDERED: HYDR-906 PO (09:40)
== END 2017-07-22 10:03 | disposition home or self-care (01) ==
LOC: FTE 08:12
DX: M62.830 Muscle spasm of back (principal); M70.98 Unspecified soft tissue disorder related to use, overuse and pressure other; Y93.9 Activity, unspecified
CPT/HCPCS: 99284

== ENCOUNTER 2017-08-21 12:59 | Emergency (ER) | payer OTHER ==
[~2017-08-21] VITALS: Ht 172.7 cm; Wt 96.8 kg
[~2017-08-21 12:59] MED LIST changes: +BACL10TA PO; +HYDR-906 PO
[2017-08-21 13:03] VITALS: Ht 172.7 cm; Wt 96.8 kg
[2017-08-21] MEDS ORDERED: AMOX500C2 PO (13:43)
[2017-08-21] MEDS ORDERED: IBUP-1542 PO (13:43)
[2017-08-21] MEDS ORDERED: CETI10CA PO (13:43)
[2017-08-21] MEDS ORDERED: TRIA15CR55 TOP (13:43)
--- NOTE | 2017-08-21 13:48 | ERD ---
ER Documentation Chief Complaint Chief Complaint Complains of generalized rash x 3 days HPI This 27-year-old male presents with multiple complaints. He complains of a rash on his right forearm in the area of the tattoo for last month. The tattoo is approximately 6 months old. Primarily itchy. He denies any fevers, bleeding or discharge. Denies any similar reactions from other tattoos. He has an additional complaint of sore throat and swollen glands in his neck. Denies fevers. ROS All systems reviewed and are negative except as per history of present illness. Medications Home Meds Active Scripts Amoxicillin* (Amoxicillin*) 500 Mg Cap, 500 MG PO TID for 10 Days, CAP Prov:MARGARITA GUTIERREZ MD 08/21/17 Ibuprofen* (Motrin*) 600 Mg Tab, 600 MG PO Q6, #15 TAB Prov:MARGARITA GUTIERREZ MD 08/21/17 Cetirizine Hcl* (Zyrtec*) 10 Mg Capsule, 10 MG PO DAILY, #15 TAB.CHEW Prov:MARGARITA GUTIERREZ MD 08/21/17 Triamcinolone Acetonide (Triamcinolone Acetonide) 0.1% - 15 Gm Cream.gm., 1 APPLIC TOP BID for 7 Days, #1 TUB Prov:MARGARITA GUTIERREZ MD 08/21/17 Baclofen* (Baclofen*) 10 Mg Tablet, 10 MG PO TID for 5 Days, #15 TAB Prov:CARLENE MONREAL MD 07/22/17 Ibuprofen* (Motrin*) 600 Mg Tab, 600 MG PO Q6, #30 TAB Prov:CARLENE MONREAL MD 07/22/17 Hydrocodone/Acetaminophen ([place] 5-325 Tablet) 1 Each Tablet, 1 TAB PO Q6H for SEVERE PAIN LEVEL 7-10, #12 TAB Prov:CARLENE MONREAL MD 07/22/17 Xuguekqziio-W-Lqiyyllntw Hb* (Guaifenesin* DM Syrup) 120 Ml Syrup, 10 ML PO Q4H Y for COUGH, #120 ML Prov:YENIFER ONEILL NP 04/13/17 Cetirizine Hcl* (Zyrtec*) 10 Mg Capsule, 10 MG PO DAILY, #30 TAB.CHEW Prov:YENIFER ONEILL [employer] 04/13/17 Albuterol Sulfate* (Proair HFA*) 8.5 Gm Hfa.aer.ad, 2 PUFF INH Q4H Y for WHEEZING AND SOB, #1 INHALER Prov:YENIFER ONEILL. [employer] 04/13/17 Ibuprofen* (Motrin*) 600 Mg Tab, 600 MG PO Q6H Y for PAIN AND OR ELEVATED TEMP, #30 TAB Prov:YENIFER ONEILL [employer] 04/13/17 Ibuprofen* (Motrin*) 600 Mg Tab, 600 MG PO Q6, #30 TAB Prov:CHANO RUSSO PA-C 02/23/17 Cyclobenzaprine Hcl* (Cyclobenzaprine Hcl*) 5 Mg Tablet, 5 MG PO Q8H Y for PAIN , #15 TAB Prov:CHANO RUSSO PA-C 02/23/17 Albuterol Sulfate* (Proair HFA*) 8.5 Gm Hfa.aer.ad, 2 PUFF INH Q4H Y for WHEEZING AND SOB, #1 INHALER Prov:JEF RICARDO 02/09/17 Cetirizine Hcl* (Zyrtec*) 10 Mg Capsule, 10 MG PO DAILY, #10 TAB.CHEW Prov:JEF RICARDO 02/09/17 Azithromycin* (Zithromax*) 250 Mg Tablet, 250 MG PO .ZPACK DIRECTED, #6 TAB TAKE 500 MG (2 TABS) THE FIRST DAY THEN 250 MG (1 TAB) DAYS 2-5 Prov:JEF RICARDO 02/09/17 Amoxicillin/Potassium Clav (Amox-Clav 875-125 mg Tablet) 875-125 mg Tab, 1 TAB PO BID for 7 Days, #14 TAB Prov:CHANO RUSSO PA-C 08/24/16 Ibuprofen* (Motrin*) 600 Mg Tab, 600 MG PO Q6, #30 TAB Prov:CHRIST BARNES PA-C 08/15/16 Acetaminophen* (Tylophen*) 500 Mg Capsule, 2 CAP PO Q8H Y for PAIN AND OR ELEVATED TEMP, #30 CAP Prov:CHRIST BARNES PA-C 08/15/16 Erythromycin* (Erythromycin* Ophthalmic) 1 Applic Oint, 1 APPLIC RIGHT EYE QID, #1 TUB Prov:RICARDO VARELA PA-C 05/05/16 Hydrocodone Bit-Acetaminophen* ([place]*) 10-325 Mg Tablet, 1 TAB PO Q6 Y for PAIN , #7 TAB Prov:CHRIST BARNES PA-C 04/14/16 Acetaminophen* (Tylophen*) 500 Mg Capsule, 1 CAP PO Q6H Y for PAIN AND OR ELEVATED TEMP, #30 CAP Prov:CHRIST BARNES PA-C 04/14/16 Famotidine* (Pepcid*) 20 Mg Tablet, 40 MG PO BID for 14 Days, TAB Prov:CHRIST BARNES PA-C 04/14/16 Ondansetron Hcl* (Zofran*) 4 Mg Tablet, 4 MG PO Q6H for NAUSEA AND/OR VOMITING, #20 TAB Prov:CHRIST BARNES PA-C 04/14/16 Amoxicillin* (Amoxicillin*) 500 Mg Cap, 500 MG PO TID for 10 Days, CAP Prov:SHWETHA BERMUDEZ PA-C 04/11/16 Ibuprofen* (Motrin*) 800 Mg Tab, 800 MG PO Q6, #30 TAB Prov:SHWETHA BERMUDEZ PA-C 04/11/16 Cyclobenzaprine Hcl* (Cyclobenzaprine Hcl*) 10 Mg Tablet, 10 MG PO TID, #15 TAB Prov:SHWETHA BERMUDEZ PA-C 04/11/16 Pantoprazole (Protonix) 40 Mg/Blist Pack Suspdr.pkt, 40 MG PO DAILY, #14 PACKET Prov:NHI PERALTA MD 12/08/15 Ondansetron Hcl* (Zofran* ODT) 4 mg -ODT Tab.disper, 4 MG PO Q6H Y for NAUSEA, # 10 TAB Prov:NHI PERALTA MD 12/08/15 Hydrocodone Bit-Acetaminophen* ([place]*) 5-325 Mg Tab, 1 TAB PO Q6 Y for PAIN, # 10 TAB Prov:NHI PERALTA MD 12/08/15 Allergies Allergies: Coded Allergies: No Known Drug Allergies (Verified Allergy, Unknown, 07/22/17) PMhx/Soc History of Surgery: Yes (wisdom teeth) Anesthesia Reaction: No Hx Neurological Disorder: No Hx Respiratory Disorders: No Hx Cardiac Disorders: No Hx Psychiatric Problems: No Hx Miscellaneous Medical Probl: Yes (GALLSTONE,GASTRITIS) Hx Alcohol Use: No Hx Substance Use: Yes (marijuana) Hx Tobacco Use: No Physical Exam Vitals Vital Signs Date Time Temp Pulse Resp B/P Pulse Ox O2 Delivery O2 Flow Rate FiO2 08/21/17 13:03 97.7 65 20 133/67 97 Physical Exam Const: [] Alert, [id number]. Head: Atraumatic Eyes: Normal Conjunctiva ENT: Normal External Ears, Nose and Mouth. TMs normal. Tonsils 3+. Slight redness. There is some cryptitis. Uvula midline. Is tender anterior cervical lymphadenitis. Neck: Full range of motion..~ No meningismus. Resp: Clear to auscultation bilaterally Cardio: Regular rate and rhythm, no murmurs Abd: Soft, non tender, non distended. Normal bowel sounds Skin: No petechiae or purpura. There is a maculopapular rash on the right forearm. It is in the area of distribution of the right forearm tattoo in the areas of dark ink. Back: No midline or flank tenderness Ext: No cyanosis, or edema Neur: Awake and alert Psych: Normal Mood and Affect Procedures/MDM Patient presents with dermatitis of his right forearm. It appears to be a reaction to the increment tattoo. He will be treated with Zyrtec and triamcinolone. He also has signs of pharyngitis. Patient will be treated empirically with amoxicillin ibuprofen, primary care follow-up and return precautions. There is no evidence of anaphylaxis, cellulitis, airway obstruction, abscess. The patient was stable with no new complaints during the ER course. Clinically, there is no current evidence to suggest meningitis, sepsis, acute abdomen, pneumonia, acute coronary syndrome, pulmonary embolism, or any other emergent condition appearing to require further evaluation or hospitalization. The patient should certainly return for any new or worsening symptoms per the aftercare instructions. They should otherwise follow-up with her primary care doctor for reevaluation this week. Departure Diagnosis: Primary Impression: Sore throat Additional Impression: Rash Condition: Stable Patient Instructions: Dermatitis, Non-Specific, Pharyngitis, Strep (Presumed) Additional Instructions: We will treat for possible infection. Recheck for new or worsening symptoms with primary care doctor. MARGARITA GUTIERREZ MD Aug 21, 2017 13:48
== END 2017-08-21 14:05 | disposition home or self-care (01) ==
LOC: FTE 12:59
DX: J02.9 Acute pharyngitis, unspecified (principal)
CPT/HCPCS: 99284

== ENCOUNTER 2018-03-12 08:31 | Emergency (ER) | END 2018-03-12 09:40 | disposition home or self-care (01) ==

== ENCOUNTER 2018-06-17 09:57 | Emergency (ER) | END 2018-06-17 12:00 | disposition home or self-care (01) ==

== ENCOUNTER 2018-08-17 20:36 | Emergency (ER) | END 2018-08-18 01:28 | disposition home or self-care (01) ==